=== PATIENT | female | born 1965 | race Caucasian/White ===

== ENCOUNTER 2018-12-17 11:58 | Emergency (ER) | payer BC ==
[2018-12-17 14:12] VITALS: BP 117/81
--- NOTE | 2018-12-17 14:23 | UC ---
Skin Complaint HPI - HPI Summary HPI Summary: painful rash right flank area x 2 days the area is itchy , red and painful pain is 5 out of 10 , radiation around her abd. worse when touching the area , better with Tylenol has been under some stress lately - History of Current Complaint Chief Complaint: UCRash Time Seen by Provider: 12/17/18 14:15 Stated Complaint: PAIN W/ RASH AROUND MIDSECTION Hx Obtained From: Patient ?: No Onset/Duration: Gradual Onset, Lasting Days - 2, Still Present Timing: Constant Onset Severity: Moderate Current Severity: Moderate Pain Intensity: 7 Location: Discrete - right flank Character: Pruritus, Pain, Redness, Raised, Painful Aggravating Factor(s): Touch Alleviating Factor(s): Nothing Associated Signs & Symptoms: Positive: Tenderness. Negative: Nausea, Vomiting, Numbness, Fever, Chills - Allergy/Home Medications Allergies/Adverse Reactions: Allergies Allergy/AdvReac Type Severity Reaction Status Date / Time No Known Allergies Allergy Verified 12/17/18 14:12 Home Medications: Home Medications Mirabegron [Myrbetriq] 25 mg PO DAILY 12/17/18 [History Confirmed 12/17/18] PMH/Surg Hx/FS Hx/Imm Hx Previously Healthy: Yes - Surgical History Surgical History: Yes Surgery Procedure, Year, and Place: L bicep tendon reconstruction;. L knee arthroscopy;. BLADDER SLING. colonscopy-12/17/18 - Family History Known Family History: Negative: Diabetes - Social History Alcohol Use: Occasionally Substance Use Type: None Smoking Status (MU): Never Smoked Tobacco - Immunization History Most Recent Tetanus Shot: within 5 years Review of Systems All Other Systems Reviewed And Are Negative: Yes Constitutional: Positive: Negative Skin: Positive: Rash Eyes: Positive: Negative ENT: Positive: Negative Respiratory: Positive: Negative Is Patient Immunocompromised?: No Physical Exam Triage Information Reviewed: Yes Appearance: Well-Appearing, No Pain Distress, Well-Nourished Vital Signs: Initial Vital Signs Temp 98 F 12/17/18 14:05 Pulse 72 12/17/18 14:05 Resp 16 12/17/18 14:05 BP 117/81 12/17/18 14:05 Pulse Ox 98 12/17/18 14:05 Eye Exam: Normal Eyes: Positive: Conjunctiva Clear ENT: Positive: Normal ENT inspection, Hearing grossly normal, Pharynx normal Neck exam: Normal Neck: Positive: Supple, Nontender, No Lymphadenopathy Respiratory: Positive: Chest non-tender, Lungs clear, Normal breath sounds Cardiovascular: Positive: RRR, No Murmur, Pulses Normal Abdominal Exam: Normal Abdomen Description: Positive: Nontender, Soft. Negative: CVA Tenderness (R), CVA Tenderness (L), Distended, Guarding Bowel Sounds: Negative: Present Skin: Positive: Other - visicular rash right flank , dermatomal , tender to touch Course/Dx - Diagnoses Provider Diagnosis: Shingles Discharge - Sign-Out/Discharge Documenting (check all that apply): Patient Departure All imaging exams completed and their final reports reviewed: No Studies - Discharge Plan Condition: Stable Disposition: HOME Prescriptions: ValACYclovir (*) [Valtrex 1 GM(*)] 1 gm PO TID #21 tab Patient Education Materials: Shingles (ED) Referrals: No Primary Care Phys,NOPCP [Primary Care Provider] - If Needed - Billing Disposition and Condition Condition: STABLE Disposition: Home
== END 2018-12-17 14:32 | disposition home or self-care (01) ==
LOC: UCCORT 11:58
DX: B02.9 Zoster without complications (principal)
CPT/HCPCS: 99212; G0463